=== PATIENT | female | born 1945 | race Two or more races ===

== ENCOUNTER 2018-01-27 13:41 | Emergency (ER) | payer OTHER ==
[~2018-01-27] VITALS: Ht 157.5 cm; Wt 74.8 kg
== END 2018-01-27 17:52 | disposition home or self-care (01) ==
LOC: ER 13:41
DX: G62.89 Other specified polyneuropathies (principal); M25.561 Pain in right knee; M54.2 Cervicalgia; M54.5 Low back pain

== ENCOUNTER 2018-02-12 08:08 | Outpatient (CLI) | payer OTHER | END 2018-02-12 10:00 | disposition home or self-care (01) | LOC: NUCLEAR 08:08 | DX: M81.0 Age-related osteoporosis without current pathological fracture (principal) ==

== ENCOUNTER 2018-02-12 09:40 | Outpatient (CLI) | payer OTHER | END 2018-02-12 09:44 | disposition home or self-care (01) | LOC: SONOGRAMA 09:40 | DX: R10.84 Generalized abdominal pain (principal) ==

== ENCOUNTER 2018-04-13 10:00 | Inpatient (IN) | payer OTHER ==
[~2018-04-13] VITALS: Ht 134.6 cm; Wt 73.5 kg
[2018-04-13] MEDS ORDERED: COZAAR25 MG PO (13:14)
[2018-04-13] MEDS ORDERED: METFORMIN HCL500 MG PO (13:14)
[2018-04-13] MEDS ORDERED: ATORVASTATIN CA20 MG PO (13:15)
== END 2018-04-21 09:03 | disposition home or self-care (01) | DRG 419 ==
LOC: O/R 04-20 04:39 → SURG 04-20 04:39 → SURH 04-20 07:00 → SURG 04-20 10:31
PROVIDERS: Specialist
PROC: BF03YZZ Plain Radiography of Gallbladder and Bile Ducts using Other Contrast (ICD-10-PCS; 2018-04-20)
PROC: 0FT44ZZ Resection of Gallbladder, Percutaneous Endoscopic Approach (ICD-10-PCS; principal; 2018-04-20 07:00)
DX: K80.10 Calculus of gallbladder with chronic cholecystitis without obstruction (principal); M25.561 Pain in right knee; M54.2 Cervicalgia; G62.89 Other specified polyneuropathies

== ENCOUNTER 2018-09-28 09:55 | Outpatient (CLI) | payer OTHER ==
[~2018-09-28 09:55] MED LIST: ATORVASTATIN CA20 MG PO; COZAAR25 MG PO; METFORMIN HCL500 MG PO
== END 2018-09-28 17:00 | disposition home or self-care (01) ==
LOC: MAMO-SONO 09:55
DX: Z12.31 Encounter for screening mammogram for malignant neoplasm of breast (principal); Z87.898 Personal history of other specified conditions; R10.13 Epigastric pain; J44.1 Chronic obstructive pulmonary disease with (acute) exacerbation

== ENCOUNTER 2020-08-31 07:16 | Outpatient (CLI) | payer OTHER | END 2020-08-31 07:27 | disposition home or self-care (01) | LOC: SONOGRAMA 07:16 | PROVIDERS: ATTEND General Practice | DX: D25.1 Intramural leiomyoma of uterus (principal); R10.0 Acute abdomen ==

== ENCOUNTER 2020-12-25 10:15 | Outpatient (CLI) | payer OTHER | END 2020-12-25 10:28 | disposition home or self-care (01) | LOC: MAMO-SONO 10:15 | PROVIDERS: ATTEND General Practice | DX: N64.59 Other signs and symptoms in breast (principal); Z12.31 Encounter for screening mammogram for malignant neoplasm of breast; Z87.898 Personal history of other specified conditions ==

== ENCOUNTER 2025-01-25 07:17 | Outpatient (CLI) | payer OTHER | END 2025-01-25 07:19 | disposition home or self-care (01) | LOC: SONOGRAMA 07:17 | PROVIDERS: ATTEND General Practice | DX: R10.9 Unspecified abdominal pain (principal) ==

== ENCOUNTER 2025-04-25 10:01 | Outpatient (CLI) | payer OTHER | END 2025-04-25 10:05 | disposition home or self-care (01) | LOC: MAMO-SONO 10:01 | PROVIDERS: ATTEND General Practice | DX: N64.4 Mastodynia (principal); Z12.31 Encounter for screening mammogram for malignant neoplasm of breast ==